=== PATIENT | male | born 1975 | race African-American/Black ===

== ENCOUNTER 2017-08-09 21:12 | Observation (INO) | payer MEDICAID, OTHER ==
[~2017-08-09] VITALS: Ht 193 cm; Wt 147.4 kg
[~2017-08-09 21:12] MED LIST: ARIP5TAB8 PO; BENZ2TAB27 PO
[2017-08-09 21:15] VITALS: BP 131/107
--- NOTE | 2017-08-09 21:15 | NUR ---
BIBA to bed 2.
--- NOTE | 2017-08-09 22:01 | NUR ---
Pt arrived from home via EMS after having stabbing chest pain and calling 911. Pt stated n/v, sob, and chest pain 03/16. upon arrival pt denies chest pain and states feeling better but sob remains. VSS. lungs clear to ausctltaion with 98% O2sat at room air. Pt A&Ox4. positioned in bed for comfort. ER MD aware. continue to monitor.
[2017-08-09 22:18] LABS: HEMATOCRIT 42.9 % (36-52); HEMOGLOBIN 14.1 g/dL (12.0-18.0); MEAN CORPUSCULAR HEMOGLOBIN 28 pg (27-31); MEAN CORPUSCULAR HGB CONC 33 g/dL (33-37); MEAN CORPUSCULAR VOLUME 86 fL (80-94); PLATELET COUNT (AUTO) 164 K/uL (140-450); RED BLOOD CELL COUNT(AUTO) 4.99 MIL/uL (4.20-6.10); WHITE BLOOD COUNT (AUTO) 4.6 K/uL (4.8-10.8)
[2017-08-09] MEDS ORDERED: ALBUTEROL SULFATE/IPRATROPIU 3 ML SOL IH ONE (23:00)
[2017-08-09 23:10] LABS: ALBUMIN 3.6 g/dL (3.4-5.0); CARBON DIOXIDE 29.1 mmol/L (21-32); CREATININE 1.2 mg/dL (0.7-1.3); POTASSIUM 4.1 mmol/L (3.5-5.1); TOTAL BILIRUBIN 0.2 mg/dL (0.0-1.0)
[2017-08-10] MEDS ORDERED: ACETAMINOPHEN 325 MG TAB PO PRN (02:50)
[2017-08-10] MEDS ORDERED: HYDROcodone/APAP 5/325 MG 1 TAB TAB PO PRN (02:50)
[2017-08-10] MEDS ORDERED: ONDANSETRON 4 MG/2 ML VIAL IVP PRN (02:50)
--- NOTE | 2017-08-10 03:52 | NUR ---
Pt escorted to [facility] via sofie by Surinder PONCE
[2017-08-10 04:00] VITALS: BP 134/80
--- NOTE | 2017-08-10 04:00 | NUR ---
PT ARRIVED AT UNIT VIA GURNEY, PT AMBULATED TO BED, TOLERATED WELL, RECEIVED REPORT FROM ER NURSE MAINOR RN, PT STABLE, NO DISTRESS NOTED, IV TO L AC 20G SL, INTACT AND PATENT, ORIENTED PT TO ROOM, CALL LIGHT, TV AND LIGHTS, INITIAL ASSESSMENT DONE, ALL SAFETY PRECAUTION MET, WILL CONTINUE TO MONITOR.
--- NOTE | 2017-08-10 04:05 | NUR ---
Report given and care taken over by Priya PONCE in room 119A
[2017-08-10 04:09] LABS: EOSINOPHILS % (MANUAL) 2 % (0-4); LYMPHOCYTES % (MANUAL) 30 % (20-46); MONOCYTES % (MANUAL) 6 % (5-12)
[2017-08-10] MEDS ORDERED: INFLUENZA VIRUS VACCINE QUAD 0.5 ML SYR IMVAC PRN (05:20)
--- NOTE | 2017-08-10 05:50 | NUR ---
CHECKED ON PT, PT SLEEPING, NO DISTRESS NOTED, CALL LIGHT WITHIN REACH, WILL CONTINUE TO MONITOR.
[2017-08-10] MEDS: ALBUTEROL 0.083% 2.5 MG/3 ML NEBU INH PRN (07:14)
--- NOTE | 2017-08-10 07:22 | NUR ---
RECEIVED PATIENT REPORT FROM NIGHTSHIFT NURSE. PATIENT IS AWAKE AT THIS TIME AND A&OX4. PATIENT BREATHING WITHIN NORMAL LIMITS. PATIENT DOES NOT COMPLAIN OF ANY PAIN AT THIS TIME. UPDATED BOARD OF PATIENT. PATIENT DOES NOT NEED ANYTHING AT THIS TIME. WILL CONTINUE TO MONITOR PATIENT.
--- NOTE | 2017-08-10 07:24 | NUR ---
ENDORSED PLAN OF CARE TO DAY SHIFT NURSE TERRANCE RN, PT STABLE, NO DISTRESS NOTED, CALL LIGHT WITHIN REACH.
[2017-08-10 08:00] VITALS: BP 129/88
[2017-08-10 08:34] LABS: CREATINE KINASE MB 2.8 ng/mL (0-3.6)
[2017-08-10] MEDS ORDERED: ENOXAPARIN 40 MG/0.4 ML SYR SUBQ SCH (09:00)
[2017-08-10] MEDS: BENZTROPINE 1 MG TAB PO SCH (09:58)
[2017-08-10] MEDS: ARIPiprazole 10 MG TAB PO SCH (09:58)
--- NOTE | 2017-08-10 09:58 | NUR ---
GAVE PATIENT'S ORAL MEDICATIONS. PATIENT REFUSED LOVENOX SHOT. WILL CONTINUE TO MONITOR PATIENT.
--- NOTE | 2017-08-10 11:45 | NUR ---
TALKED TO TATYANA REGARDING PATIENT'S MRSA SCREEN OF THE NARES. LAB DISCARDED PATIENT'S SCREEN SPECIMEN BECAUSE IT IS TOO OLD. WILL GET ANOTHER SAMPLE FROM PATIENT.
--- NOTE | 2017-08-10 11:50 | NUR ---
SWABBED PATIENT'S NOSE AGAIN AND SENT TO THE LAB FOR MRSA SCREENING OF NARES. PATIENT BREATHING WITHIN NORMAL LIMITS. NO COMPLAINTS OF PAIN. WILL CONTINUE TO MONITOR PATIENT.
[2017-08-10 12:00] VITALS: BP 120/73
--- NOTE | 2017-08-10 12:20 | NUR ---
PATIENT LAYING IN BED WATCHING TELEVISION. NO COMPLAINTS OF PAIN. PATIENT BREATHING WITHIN NORMAL LIMITS. PATIENT MUTTERING TO HIMSELF AT THIS TIME. NO SIGNS OF SUICIDE IDEATION OR COMMAND HALLUCINATIONS.
--- NOTE | 2017-08-10 13:27 | NUR ---
PATIENT RESTING IN BED. BREATHING IS UNLABORED AND SYMMETRICAL. NO COMPLAINTS OF PAIN. WILL CONTINUE TO MONITOR PATIENT.
--- NOTE | 2017-08-10 14:30 | NUR ---
PATIENT BREATHING IS WITHIN NORMAL LIMITS AT THIS TIME. NO COMMAND AUDITORY HALLUCINATIONS PRESENT FOR PATIENT AT THIS TIME. PATIENT COMPLAINS OF CONSTIPATION AND SAYS HIS LAST BOWEL MOVEMENT WAS IN THE MORNING YESTERDAY. WILL PAGE DR. FOSTER FOR ANY ORDERS REGARDING PATIENT'S CONDITION.
[2017-08-10] MEDS ORDERED: MAGNESIUM HYDROXIDE 2400 MG/30 ML UDC PO PRN (15:00)
--- NOTE | 2017-08-10 15:23 | NUR ---
PATIENT COMPLAINS OF DISCOMFORT IN ABDOMEN. PATIENT CLAIMS HIS LAST BOWEL MOVEMENT WAS YESTERDAY MORNING. GAVE PATIENT MILK OF MAGNESIA 30 ML FOR CONSTIPATION. WILL CONTINUE TO MONITOR PATIENT.
[2017-08-10 16:00] VITALS: BP 124/91
--- NOTE | 2017-08-10 16:15 | NUR ---
PATIENT HAS BEEN SCREENED AND CATEGORIZED LOW NUTRITION RISK. PATIENT WILL BE SEEN WITHIN 7 DAYS OF ADMISSION. 08/16/[address]
--- NOTE | 2017-08-10 16:31 | NUR ---
PATIENT RESTING IN BED AT THIS TIME. PATIENT HAS NO COMPLAINTS OF CHEST PAIN. PATIENT BREATHING WITHIN NORMAL LIMITS. WILL CONTINUE TO MONITOR PATIENT.
[2017-08-10 16:49] LABS: CREATINE KINASE MB 3.3 ng/mL (0-3.6)
--- NOTE | 2017-08-10 17:35 | NUR ---
PATIENT AWAITING CONSULTATION WITH PSYCHIATRIC DOCTOR. PATIENT WANTS TO GO HOME AT THIS TIME. EXPLAINED TO PATIENT THAT HE HAS TO WAIT UNTIL THE DOCTOR CLEARS HIM TO LEAVE THE HOSPITAL. WILL CONTINUE TO MONITOR PATIENT.
--- NOTE | 2017-08-10 19:03 | NUR ---
GAVE PATIENT REPORT TO NIGHTSHIFT NURSE. PATIENT IS IN STABLE CONDITION.
--- NOTE | 2017-08-10 19:04 | NUR ---
RECEIVED BEDSIDE REPORT FROM DAY SHIFT NURSE TERRANCE PONCE, PT STABLE, NO DISTRESS NOTED, CALL LIGHT WITHIN REACH, WILL CONTINUE TO MONITOR. Addendum: 08/10/17 at 2023 by Priya Guerra RN IV TO L AC 20 G SL, PATENT, INITIAL ASSESSMENT DONE, ALL SAFETY PRECAUTION MET, WILL CONTINUE TO MONITOR.
--- NOTE | 2017-08-10 19:43 | NUR ---
PT C/O OF HEADACHE 6/10 INTERMITTENT PAIN, TYLENOL GIVEN, IM FLU VACCINE ALSO GIVEN TO THE L ARM BY STUDENT TRICIA, SUPERVISED BY INSTRUCTOR AND NURSE. PT TOLERATED WELL, NO DISTRESS NOTED, CALL LIGHT WITHIN REACH, WILL CONTINUE TO MONITOR.
[2017-08-10 20:00] VITALS: BP 131/76
--- NOTE | 2017-08-10 22:28 | NUR ---
CHECKED ON PT, PT SLEEPING, NO DISTRESS NOTED, CALL LIGHT WITHIN REACH, WILL CONTINUE TO MONITOR.
[2017-08-11] VITALS: BP 116/64
--- NOTE | 2017-08-11 00:22 | NUR ---
CHECKED ON PT, PT SLEEPING, NO DISTRESS NOTED, EASY TO AROUSE, CALL LIGHT WITHIN REACH, WILL CONTINUE TO MONITOR.
--- NOTE | 2017-08-11 02:40 | NUR ---
CHECKED ON PT, PT SLEEPING, NO DISTRESS NOTED, CALL LIGHT WITHIN REACH, WILL CONTINUE TO MONITOR.
[2017-08-11 04:00] VITALS: BP 129/77
--- NOTE | 2017-08-11 05:00 | NUR ---
CHECKED ON PT, PT SLEEPING, NO DISTRESS NOTED, CALL LIGHT WITHIN REACH.
[2017-08-11 07:18] LABS: HEMATOCRIT 42.5 % (36-52); HEMOGLOBIN 14.1 g/dL (12.0-18.0); MEAN CORPUSCULAR HEMOGLOBIN 28 pg (27-31); MEAN CORPUSCULAR HGB CONC 33 g/dL (33-37); MEAN CORPUSCULAR VOLUME 86 fL (80-94); PLATELET COUNT (AUTO) 140 K/uL (140-450); RED BLOOD CELL COUNT(AUTO) 4.96 MIL/uL (4.20-6.10); RED CELL DISTRIBUTION WIDTH 12.8 % (11.6-13.7); WHITE BLOOD COUNT (AUTO) 3.6 K/uL (4.8-10.8)
--- NOTE | 2017-08-11 07:24 | NUR ---
RECEIVED PATIENT REPORT FROM NIGHTSHIFT NURSE AT BEDSIDE. PATIENT IS ASLEEP BUT AROUSABLE TO NAME. PATIENT SHOWS NO SIGNS OF RESPIRATORY DISTRESS OR RESPIRATORY DEPRESSION. PATIENT DOES NOT COMPLAIN OF PAIN. UPDATED BOARD AND PUT CALL LIGHT WITHIN REACH OF PATIENT. WILL CONTINUE TO MONITOR PATIENT.
[2017-08-11 07:26] LABS: ALBUMIN 3.4 g/dL (3.4-5.0); CARBON DIOXIDE 25.2 mmol/L (21-32); CREATININE 1.1 mg/dL (0.7-1.3); POTASSIUM 4.2 mmol/L (3.5-5.1); TOTAL BILIRUBIN 0.2 mg/dL (0.0-1.0)
--- NOTE | 2017-08-11 07:30 | NUR ---
ENDORSED PLAN OF CARE TO DAY SHIFT NURSE FANY PONCE, PT STABLE, NO DISTRESS NOTED, CALL LIGHT WITHIN REACH, WILL CONTINUE TO MONITOR. Addendum: 08/11/17 at 0735 by Priya Guerra RN ROSARIO CARLOS
[2017-08-11 07:49] LABS: EOSINOPHILS % (MANUAL) 1 % (0-4); LYMPHOCYTES % (MANUAL) 30 % (20-46); MONOCYTES % (MANUAL) 12 % (5-12)
[2017-08-11 08:00] VITALS: BP 128/75
[2017-08-11] MEDS ORDERED: ASPIRIN 325 MG TAB PO SCH (09:00)
[2017-08-11] MEDS ORDERED: ALBU-118 IH (09:16)
--- NOTE | 2017-08-11 09:22 | NUR ---
PATIENT AWAKE AT THIS TIME. NO COMPLAINTS OF PAIN. WILL CONTINUE TO MONITOR PATIENT.
[2017-08-11] MEDS: ARIPiprazole 10 MG TAB PO SCH (09:25)
[2017-08-11] MEDS: BENZTROPINE 1 MG TAB PO SCH (09:25)
--- NOTE | 2017-08-11 09:25 | NUR ---
PATIENT TOOK ALL 0900 MEDICATIONS BY MOUTH. PATIENT TOLERATED WELL. WILL CONTINUE TO MONITOR PATIENT.
[2017-08-11] MEDS ORDERED: ALBUTEROL 0.083% 2.5 MG/3 ML NEBU INH ONE (09:43)
[2017-08-11] MEDS: ALBUTEROL 0.083% 2.5 MG/3 ML NEBU INH PRN (09:45)
--- NOTE | 2017-08-11 09:45 | NUR ---
COMBAT SYSTEMS OFFICER CALLED TO BEDSIDE BY TERRANCE/ROSARIO PATIENT C/O OF SOB ALSO PRN ENTERED BY DR. NELSON FOSTER
--- NOTE | 2017-08-11 10:30 | NUR ---
PATIENT IS AWAKE AT THIS TIME. PATIENT HAS NO SHORTNESS OF BREATH OR RESPIRATORY DEPRESSION. NO COMPLAINTS OF PAIN NOTED AT THIS TIME. WILL CONTINUE TO MONITOR PATIENT.
--- NOTE | 2017-08-11 11:11 | NUR ---
PATIENT SIGNED ALL PAPERS AND UNDERSTOOD DISCHARGE INSTRUCTIONS. PATIENT HAS DISCHARGE PRESCRIPTION AND BUS PASS. PATIENT IS AWARE OF FOLLOW UP APPOINTMENTS. DISCONTINUED PATIENT IV CATHETER WITH IV STILL INTACT. CUT OFF IDENTIFICATION BANDS FOR PATIENT. REMOVED TELE MONITOR BOX FROM PATIENT. PATIENT IS IN STABLE CONDITION. PATIENT AMBULATED OFF THE UNIT WITH BELONGINGS IN HANDS.
[2017-08-11] MEDS ORDERED: ALBUTEROL 0.083% 2.5 MG/3 ML NEBU INH SCH (13:00)
== END 2017-08-11 11:11 | disposition home or self-care (01) ==
LOC: MED 21:12 → MTU 08-10 02:55 → UNDOADMIN 08-10 02:55
PROVIDERS: ADMIT Hospitalist; ATTEND Hospitalist
DX: R10.9 Unspecified abdominal pain (principal); F20.9 Schizophrenia, unspecified; R07.89 Other chest pain; J45.909 Unspecified asthma, uncomplicated; F17.200 Nicotine dependence, unspecified, uncomplicated
CPT/HCPCS: 36415; 71045; 80053; 82550; 82553; 83880; 84484; 85025; 85610; 85730; 87081; 90658; 93005; 94640; 96372; 99285; G0378; J1650; J7613; J7620

== ENCOUNTER 2017-11-10 08:42 | Emergency (ER) | payer OTHER ==
[~2017-11-10] VITALS: Ht 182.9 cm; Wt 154.2 kg
[~2017-11-10 08:42] MED LIST changes: +ALBU-118 IH
[2017-11-10 08:44] VITALS: BP 127/83
--- NOTE | 2017-11-10 08:53 | NUR ---
PATIENT BIBA FOR AUDITORY HALLUCINATIONS. PER [facility], PATIENT WAS FOUND AT A PAYPHONE. PATIENT STATES HE WAS HEARING VOICES AND WANTS SOME HELP. DENIES N/V/D; SKIN IS PINK/WARM/DRY; AAOX4 WITH EVEN AND STEADY GAIT; LUNGS CLEAR BL; HR EVEN AND REGULAR; PT DENIES ANY FEVER, CP, SOB, OR COUGH AT THIS TIME; PATIENT STATES PAIN OF 0/10 AT THIS TIME; VSS; PATIENT POSITIONED FOR COMFORT; HOB ELEVATED; BEDRAILS UP X1; BED DOWN. ER MD MADE AWARE OF PT STATUS.
--- NOTE | 2017-11-10 09:11 | NUR ---
PATIENT SITTING UP EATING.
--- NOTE | 2017-11-10 09:55 | NUR ---
BLOOD DRAWN AT BEDSIDE. SENT TO LAB. PATIENT TOLERATED PROCEDURE WELL. RESTING COMFORTABLY, X2 BED RAILS UP.
[2017-11-10 10:19] LABS: HEMATOCRIT 39.3 % (36-52); HEMOGLOBIN 12.7 g/dL (12.0-18.0); RED CELL DISTRIBUTION WIDTH 15.2 % (11.6-13.7)
[2017-11-10 10:27] LABS: MEAN CORPUSCULAR HEMOGLOBIN 27 pg (27-31); MEAN CORPUSCULAR HGB CONC 32 g/dL (33-37); MEAN CORPUSCULAR VOLUME 85.1 fL (80-94); PLATELET COUNT (AUTO) 165 K/uL (140-450); RED BLOOD CELL COUNT(AUTO) 4.61 MIL/uL (4.20-6.10); WHITE BLOOD COUNT (AUTO) 4.7 K/uL (4.8-10.8)
[2017-11-10 10:47] LABS: EOSINOPHILS % (MANUAL) 2 % (0-4); MONOCYTES % (MANUAL) 3 % (5-12)
[2017-11-10 10:48] LABS: LYMPHOCYTES % (MANUAL) 36 % (20-46)
--- NOTE | 2017-11-10 11:10 | NUR ---
Patient appears to be resting comfortably in bed. Vital Signs within normal limits. Respirations even and unlabored.
[2017-11-10 11:11] LABS: APPEARANCE,URINE CLEAR (CLEAR); BILIRUBIN,URINE NEGATIVE (NEGATIVE); BLOOD, URINE NEGATIVE (NEGATIVE); COLOR,URINE YELLOW (YELLOW); LEUKOCYTE ESTERASE ,URINE NEGATIVE (NEGATIVE); NITRITE, URINE NEGATIVE (NEGATIVE); UGLUCOSE NEGATIVE (NEGATIVE)
[2017-11-10 11:17] LABS: RBC,URINE 0-5 (RARE) /HPF (0-5); WBC,URINE 0-5 (RARE) /HPF (0-5)
[2017-11-10 11:17] LABS: ALBUMIN 3.6 g/dL (3.4-5.0); ANION GAP 13.8 (8-16); ASPARTATE AMINOTRANSFERASE 22 U/L (15-37); CARBON DIOXIDE 26.7 mmol/L (21-32); CHLORIDE 103 mmol/L (98-107); GFR ARICAN-AMERICAN 105 mL/min (>90); GLUCOSE 123 mg/dL (74-106); POTASSIUM 3.5 mmol/L (3.5-5.1); SODIUM SERUM 140 mmol/L (136-145); TOTAL BILIRUBIN 0.3 mg/dL (0.0-1.0); UREA NITROGEN, BLOOD 13 mg/dL (7-18)
[2017-11-10 11:21] LABS: SALICYLATE < 2.8 mg/dL (2.8-20.0)
[2017-11-10 11:22] LABS: ACETAMINOPHEN < 0.5 ug/ml (10-30)
--- NOTE | 2017-11-10 12:30 | NUR ---
Patient appears to be resting comfortably in bed. Vital Signs within normal limits. Respirations even and unlabored.
[2017-11-10] MEDS ORDERED: MAGNESIUM HYDROXIDE 2400 MG/30 ML UDC PO ONE (13:25)
--- NOTE | 2017-11-10 13:26 | NUR ---
Was called to evaluate patient for 5150 hold. Denies wanting to harm himself. States he has no intention of harming himself. He is looking for some help to regulate his medications and to get him on the right path in life and find a job. He would like to have a voluntary evaluation to be placed on leticia correct medications. He says he has smoked "dope" and would like to quit. Dr [place], public relations consultant, and staffing coordinator aware of my evaluation. We will be checking with local resources and attempt to get outpaitnet or voluntary resources prior to discharge.
--- NOTE | 2017-11-10 14:30 | NUR ---
Patient appears to be resting comfortably in bed. Vital Signs within normal limits. Respirations even and unlabored.
--- NOTE | 2017-11-10 15:54 | NUR ---
Patient discharged with v/s stable. Written and verbal after care instructions given and explained. Patient alert, oriented and verbalized understanding of instructions. Ambulatory with steady gait. All questions addressed prior to discharge. ID band removed. Patient advised to follow up with PMD. Rx of PEPCID AND MAALOX given. Patient educated on indication of medication including possible reaction and side effects. Opportunity to ask questions provided and answered.
[2017-11-10 15:59] VITALS: BP 121/83
[2017-11-10 15:59] LABS: BARBITURATE, URINE NEG. ng/ml (NEG <=200); BENZODIAZEPINE, URINE NEG. ng/mL (NEG <=200); CANNABINOID, URINE POS. ng/mL (NEG <=50); COCAINE, URINE NEG. ng/mL (NEG <=300); OPIATE, URINE NEG. ng/mL (NEG <=2000); PHENCYCLIDINE SCREEN,URINE NEG. ng/mL (NEG <=25)
== END 2017-11-10 15:54 | disposition home or self-care (01) ==
LOC: MED 08:42
DX: F99 Mental disorder, not otherwise specified (principal); E11.9 Type 2 diabetes mellitus without complications; I10 Essential (primary) hypertension; F20.9 Schizophrenia, unspecified; Z88.8 Allergy status to other drugs, medicaments and biological substances; Z79.899 Other long term (current) drug therapy
CPT/HCPCS: 36415; 80053; 80305; 81001; 85025; 93005; 99285; G0480; G0482

== ENCOUNTER 2017-11-18 06:55 | Emergency (ER) | payer OTHER ==
[~2017-11-18] VITALS: Ht 182.9 cm; Wt 167.8 kg
[2017-11-18 06:55] VITALS: BP 139/89
--- NOTE | 2017-11-18 06:55 | NUR ---
TO BED # 2 BIBA WITH C/O ABD PAIN,03/16, NV.
--- NOTE | 2017-11-18 07:32 | NUR ---
42 YO M BIBA FOUND IN THE STREET WITH C/O ABD PAIN, N/V. PSYCH PATIENT , NO SUICIDAL IDEATION AT THIS TIME, NO MEDS FOR 2 MONTHS,EKG DONE WITH NSR RESULT. A&O X 4. GCS 15. CMS INTACT. RR EVEN AND UNLABORED. LUNGS BILATERALLY CLEAR. ER MD DE LA CRUZ NOTIFIED. PT NEEDS MET. SAFETY PRECAUTIONS IN PLACE. WILL CONTINUE TO MONITOR.
--- NOTE | 2017-11-18 08:15 | NUR ---
PT TO XRAY AT THIS TIME.
[2017-11-18 08:23] LABS: BASOPHILS % (AUTO) 0.6 % (0.0-2.0); EOSINOPHILS # (AUTO) 0.1 K/uL (0-0.4); HEMOGLOBIN 12.3 g/dL (12.0-18.0); LYMPHOCYTES # (AUTO) 2.4 K/uL (2.0-11.5); LYMPHOCYTES % (AUTO) 47.6 % (20.5-51.1); MEAN CORPUSCULAR HEMOGLOBIN 28 pg (27-31); MEAN CORPUSCULAR HGB CONC 33 g/dL (33-37); MEAN CORPUSCULAR VOLUME 83.6 fL (80-94); MONOCYTES # (AUTO) 0.4 K/uL (0.8-1.0); MONOCYTES % (AUTO) 7.3 % (1.7-9.3); NEUTROPHILS % (AUTO) 41.5 % (42.2-75.2); PLATELET COUNT (AUTO) 185 K/uL (140-450); RED BLOOD CELL COUNT(AUTO) 4.43 MIL/uL (4.20-6.10); RED CELL DISTRIBUTION WIDTH 15.6 % (11.6-13.7); WHITE BLOOD COUNT (AUTO) 4.9 K/uL (4.8-10.8)
[2017-11-18 08:46] LABS: ALBUMIN 3.5 g/dL (3.4-5.0); ANION GAP 12.7 (8-16); ASPARTATE AMINOTRANSFERASE 31 U/L (15-37); CARBON DIOXIDE 25.1 mmol/L (21-32); CHLORIDE 105 mmol/L (98-107); CREATININE 1.1 mg/dL (0.7-1.3); GFR ARICAN-AMERICAN 94 mL/min (>90); GLUCOSE 107 mg/dL (74-106); POTASSIUM 3.8 mmol/L (3.5-5.1); SODIUM SERUM 139 mmol/L (136-145); TOTAL BILIRUBIN 0.2 mg/dL (0.0-1.0); UREA NITROGEN, BLOOD 16 mg/dL (7-18)
[2017-11-18 08:50] LABS: ACETAMINOPHEN < 0.5 ug/ml (10-30); SALICYLATE < 2.8 mg/dL (2.8-20.0)
--- NOTE | 2017-11-18 08:52 | NUR ---
ATTEMPTED TO COLLECT URINE FROM THE PATIENT AGAIN AT THIS TIME, PT REFUSED. WILL CONTINUE TO TRY TO COLLECT SPECIMEN. WILL CONTINUE TO MONITOR.
[2017-11-18 09:30] LABS: CKMB RELATIVE INDEX 1.5 (0.0-2.5); CREATINE KINASE MB 14.5 ng/mL (0-3.6)
--- NOTE | 2017-11-18 09:53 | NUR ---
Again tried to collect urine specimen from patient. Pt refused at this time. Will continue to monitor.
[2017-11-18 11:17] LABS: APPEARANCE,URINE CLEAR (CLEAR); BILIRUBIN,URINE NEGATIVE (NEGATIVE); BLOOD, URINE NEGATIVE (NEGATIVE); COLOR,URINE YELLOW (YELLOW); LEUKOCYTE ESTERASE ,URINE NEGATIVE (NEGATIVE); NITRITE, URINE NEGATIVE (NEGATIVE); PH,URINE 5.5 (5.0-9.0); UGLUCOSE NEGATIVE (NEGATIVE)
[2017-11-18 11:23] VITALS: BP 137/76
[2017-11-18 11:25] LABS: BARBITURATE, URINE NEG. ng/ml (NEG <=200); BENZODIAZEPINE, URINE NEG. ng/mL (NEG <=200); CANNABINOID, URINE POS. ng/mL (NEG <=50); COCAINE, URINE NEG. ng/mL (NEG <=300); OPIATE, URINE NEG. ng/mL (NEG <=2000); PHENCYCLIDINE SCREEN,URINE NEG. ng/mL (NEG <=25)
--- NOTE | 2017-11-18 11:25 | NUR ---
Patient discharged with v/s stable. Written and verbal after care instructions given and explained. Patient verbalized understanding. Ambulatory with steady gait. All questions addressed prior to discharge. Advised to follow up with PMD.
== END 2017-11-18 11:25 | disposition home or self-care (01) ==
LOC: MED 06:55
DX: F25.8 Other schizoaffective disorders (principal); J44.9 Chronic obstructive pulmonary disease, unspecified; K21.9 Gastro-esophageal reflux disease without esophagitis; I10 Essential (primary) hypertension; E11.9 Type 2 diabetes mellitus without complications; Z88.8 Allergy status to other drugs, medicaments and biological substances; Z59.0 Homelessness
CPT/HCPCS: 36415; 70450; 71045; 80053; 80305; 81003; 82550; 82553; 84484; 85025; 93005; 99285; G0480; G0482; Q0092; C1758

== ENCOUNTER 2019-09-20 07:40 | Emergency (ER) | payer MEDICAID, OTHER ==
[~2019-09-20] VITALS: Ht 182.9 cm; Wt 142.9 kg
--- NOTE | 2019-09-20 07:40 | NUR ---
Patient BIBA BLS accompanied by [employer], transferred to bed 5. RN evaluating patient at bedside.
[2019-09-20 07:42] VITALS: BP 145/89
--- NOTE | 2019-09-20 07:50 | NUR ---
claudy for hold for suicidal ideation. Pt states he plans to walk in front of a car or overdose on "something". Pt admits to meth use yesterday, denies etoh or drugs today. pt states he has a hx of schizophrenia and is hearing voices telling him to hurt himself. denies attempts to harm himself at this time. saftey precautions in place at this time. all belongings removed from patient and given to security. All cords, iv pole, & trashcan removed from room at this time. bed in low position, side rail up x1.
--- NOTE | 2019-09-20 07:50 | NUR ---
sitting at bedside monitoring pt.
--- NOTE | 2019-09-20 08:06 | NUR ---
pt states he is unable to urinate at this time.
--- NOTE | 2019-09-20 08:06 | NUR ---
lab at bedside
--- NOTE | 2019-09-20 08:12 | NUR ---
[facility] aware of pt, will assist with psych placement if indicated. [facility] will require packet to look for placement. [facility] fax: [phone]
[2019-09-20 08:14] LABS: BASOPHILS % (AUTO) 0.3 % (0.0-2.0); EOSINOPHILS # (AUTO) 0.1 K/uL (0-0.4); HEMATOCRIT 38.3 % (36-52); HEMOGLOBIN 12.5 g/dL (12.0-18.0); LYMPHOCYTES # (AUTO) 1.9 K/uL (2.0-11.5); LYMPHOCYTES % (AUTO) 43.5 % (20.5-51.1); MEAN CORPUSCULAR HEMOGLOBIN 28 pg (27-31); MEAN CORPUSCULAR HGB CONC 33 g/dL (33-37); MEAN CORPUSCULAR VOLUME 84.8 fL (80-94); MONOCYTES # (AUTO) 0.5 K/uL (0.8-1.0); MONOCYTES % (AUTO) 12.3 % (1.7-9.3); NEUTROPHILS # (AUTO) 1.8 K/uL (1.8-7.7); NEUTROPHILS % (AUTO) 41.9 % (42.2-75.2); PLATELET COUNT (AUTO) 182 K/uL (140-450); RED BLOOD CELL COUNT(AUTO) 4.52 MIL/uL (4.20-6.10); RED CELL DISTRIBUTION WIDTH 15.4 % (11.6-13.7); WHITE BLOOD COUNT (AUTO) 4.4 K/uL (4.8-10.8)
--- NOTE | 2019-09-20 08:30 | NUR ---
pt states he is still unable to urinate at this time.
[2019-09-20 08:32] LABS: ANION GAP 11.6 (8-16); CARBON DIOXIDE 28.7 mmol/L (21-32); CREATININE 1.1 mg/dL (0.6-1.3); POTASSIUM 4.3 mmol/L (3.5-5.1)
[2019-09-20 08:42] LABS: FREE T4 (FREE THYROXINE) 1.06 ng/dL (0.76-1.46); THYROID STIMULATING HORMONE 1.65 uIU/mL (0.34-3.74)
[2019-09-20 08:44] LABS: ACETAMINOPHEN < 0.5 ug/ml (10-30); SALICYLATE < 2.8 mg/dL (2.8-20.0)
--- NOTE | 2019-09-20 10:06 | NUR ---
pt asleep in bed, arousable to verbal stimuli
[2019-09-20 10:09] LABS: BARBITURATE, URINE NEGATIVE ng/ml (NEG <=200); BENZODIAZEPINE, URINE NEGATIVE ng/mL (NEG <=200); CANNABINOID, URINE POS ng/mL (NEG <=50); COCAINE, URINE NEG ng/mL (NEG <=300); OPIATE, URINE NEG ng/mL (NEG <=2000); PHENCYCLIDINE SCREEN,URINE NEG ng/mL (NEG <=25)
--- NOTE | 2019-09-20 11:17 | NUR ---
PT REMAINS ASLEEP IN BED, AROUSABLE TO VERBAL STIMULI. NO NEW NEEDS AT THIS TIME.
--- NOTE | 2019-09-20 11:21 | NUR ---
[facility] received pt packet via fax, will begin looking for placement. Yeimi from [facility] ER aware.
--- NOTE | 2019-09-20 11:30 | NUR ---
Contacted the following facilities regarding placement: [facility]: s/w Jerzy, states they may have openings, will review packet for appropriateness. Packet faxed [facility]: s/w Sonja, states that they are not reviewing packets unless the patient is ruled out for COVID-19. Will contact ER to clarify if pt has been tested. [facility]: s/w [facility], states doctors are doing their rounds, packet faxed for review. [facility]: No answer at intake, packet faxed for review. [facility]: Transferred to busy signal multiple attempts. Packet faxed.
--- NOTE | 2019-09-20 12:06 | NUR ---
Telepsychiatry consultation ordered as requested by Dr. Hernández.
--- NOTE | 2019-09-20 12:21 | NUR ---
Dr. Garrido is evaluating the patient via telepsychiatry.
--- NOTE | 2019-09-20 13:05 | NUR ---
Patient to be transferred to [facility]. Patient is being transferred due to needing psychiatric services. Receiving facility has accepting physician Dr. Ortiz and available space. Patient will be going to unit #1 room # 1002-C. ER physician has signed transfer form. Patient belongings inventoried and will be sent with patient. Copy of nursing notes and lab reports to be sent with patient. Report called to Noreen PONCE at receiving facility. [facility] ambulance service has been called for transfer.
[2019-09-20 14:42] VITALS: BP 121/74
--- NOTE | 2019-09-20 14:42 | NUR ---
[facility] IS TRANSFERING PT AT BEDSIDE.
== END 2019-09-20 14:42 ==
LOC: MED 07:40
DX: R45.851 Suicidal ideations (principal); F15.10 Other stimulant abuse, uncomplicated; F12.10 Cannabis abuse, uncomplicated; J45.909 Unspecified asthma, uncomplicated; E11.9 Type 2 diabetes mellitus without complications; I10 Essential (primary) hypertension; Z88.8 Allergy status to other drugs, medicaments and biological substances
CPT/HCPCS: 36415; 80048; 80305; 81002; 84439; 84443; 85025; 93005; 99285; G0480; G0482

== ENCOUNTER 2020-02-25 06:58 | Emergency (ER) | payer MEDICAID ==
[~2020-02-25] VITALS: Ht 182.9 cm; Wt 122.5 kg
[2020-02-25 07:06] VITALS: BP 146/98
--- NOTE | 2020-02-25 07:10 | NUR ---
PT TAKEN TO BED 05 WITH STEADY GAIT.
--- NOTE | 2020-02-25 07:16 | NUR ---
DR. OKEEFE EVALUATING PT AT BEDSIDE
--- NOTE | 2020-02-25 07:22 | NUR ---
44/M C/O AUDITORY HALLUCINATIONS X OVER 1 MONTH. PT UNABLE TO SPECIFY NOW WHAT VOICES ARE TELLING HIM TO DO. OUT OF HOME MEDS DEPAKOTE AND ABILITY FOR THE LAST 6 MONTHS. ABLE TO ANSWER QUESTIONS APPROPRIATELY AT THIS TIME. NOTED TO BE MUMBLING TO SELF, WHEN ASKED WHAT VOICES ARE TELLING HIM TO DO NOW, PT STATES HE IS JUST HAVING A CONVERSATION WITH HIMSELF. NAD. PMH: SCHIZOPHRENIA ALLERGIES: RISPERIDONE
--- NOTE | 2020-02-25 07:25 | NUR ---
PT STATES WOULD JUST LIKE TO GET HIS MEDICATIONS REFILLED HERE, AND HE WILL BE ABLE TO SEE A PSYCHIATRIST OUTPATIENT.
--- NOTE | 2020-02-25 07:45 | NUR ---
Patient discharged with v/s stable. Written and verbal after care instructions given and explained. Patient alert, oriented and verbalized understanding of instructions. Ambulatory with steady gait. All questions addressed prior to discharge. ID band removed. Patient advised to follow up with PMD. Rx of DEPAKOTE AND ABILIFY given. Patient educated on indication of medication including possible reaction and side effects. Opportunity to ask questions provided and answered.
--- NOTE | 2020-02-25 07:45 | NUR ---
[facility]/PSYCH/COUNSELING RESOURCE HANDED GIVEN TO PT
[2020-02-25 07:57] VITALS: BP 146/98
== END 2020-02-25 07:45 | disposition home or self-care (01) ==
LOC: MED 06:58
DX: F20.9 Schizophrenia, unspecified (principal); F15.10 Other stimulant abuse, uncomplicated; F12.10 Cannabis abuse, uncomplicated; F17.210 Nicotine dependence, cigarettes, uncomplicated; J45.909 Unspecified asthma, uncomplicated; E11.9 Type 2 diabetes mellitus without complications; I10 Essential (primary) hypertension; Z98.890 Other specified postprocedural states; Z88.8 Allergy status to other drugs, medicaments and biological substances
CPT/HCPCS: 99283

== ENCOUNTER 2020-02-27 16:31 | Emergency (ER) | payer MEDICAID, OTHER ==
[~2020-02-27] VITALS: Ht 182.9 cm; Wt 170.1 kg
[2020-02-27 16:38] VITALS: BP 145/100
--- NOTE | 2020-02-27 16:38 | NUR ---
Pt biba and taken to bed 05
--- NOTE | 2020-02-27 16:41 | NUR ---
45 y/o male biba for auditory hallucination x 90 days. Pt states possible thoughts of suicidal ideation. States voices telling him to kill self. Pt does not have specific plan but states "these voices are getting dangerous." States 6/10 lower back pain for 90 days. Denies trauma/injury. Awake and alert. Pt calm and cooperative. VSS medhx: schizophrenia, bipolar
--- NOTE | 2020-02-27 16:45 | NUR ---
Dr Stover at bedside examining pt
--- NOTE | 2020-02-27 16:51 | NUR ---
Pt ambulated to restroom for collection of urine
[2020-02-27 17:14] LABS: BASOPHILS % (AUTO) 0.5 % (0.0-2.0); EOSINOPHILS # (AUTO) 0.1 K/uL (0-0.4); EOSINOPHILS % (AUTO) 2.5 % (0.0-4.0); HEMATOCRIT 38.4 % (36-52); HEMOGLOBIN 12.7 g/dL (12.0-18.0); LYMPHOCYTES # (AUTO) 2.5 K/uL (2.0-11.5); LYMPHOCYTES % (AUTO) 46.1 % (20.5-51.1); MEAN CORPUSCULAR HEMOGLOBIN 28 pg (27-31); MEAN CORPUSCULAR HGB CONC 33 g/dL (33-37); MONOCYTES # (AUTO) 0.4 K/uL (0.8-1.0); MONOCYTES % (AUTO) 8.1 % (1.7-9.3); NEUTROPHILS # (AUTO) 2.4 K/uL (1.8-7.7); NEUTROPHILS % (AUTO) 42.8 % (42.2-75.2); PLATELET COUNT (AUTO) 195 K/uL (140-450); RED BLOOD CELL COUNT(AUTO) 4.63 MIL/uL (4.20-6.10); RED CELL DISTRIBUTION WIDTH 15.4 % (11.6-13.7); WHITE BLOOD COUNT (AUTO) 5.5 K/uL (4.8-10.8)
[2020-02-27 17:16] LABS: APPEARANCE,URINE CLEAR (CLEAR); BILIRUBIN,URINE 1+ (NEGATIVE); BLOOD, URINE NEGATIVE (NEGATIVE); COLOR,URINE YELLOW (YELLOW); LEUKOCYTE ESTERASE ,URINE NEGATIVE (NEGATIVE); NITRITE, URINE NEGATIVE (NEGATIVE); UGLUCOSE NEGATIVE (NEGATIVE)
--- NOTE | 2020-02-27 17:16 | NUR ---
Covid swabs collected from patient and taken to lab.
[2020-02-27 17:26] LABS: ALBUMIN 3.9 g/dL (3.4-5.0); ANION GAP 12.4 (8-16); ASPARTATE AMINOTRANSFERASE 25 U/L (15-37); CARBON DIOXIDE 28.4 mmol/L (21-32); CHLORIDE 105 mmol/L (98-107); CREATININE 1.2 mg/dL (0.6-1.3); GFR ARICAN-AMERICAN 84 mL/min (>90); GLUCOSE 104 mg/dL (74-106); POTASSIUM 3.8 mmol/L (3.5-5.1); SODIUM SERUM 142 mmol/L (136-145); TOTAL BILIRUBIN 0.2 mg/dL (0.0-1.0); UREA NITROGEN, BLOOD 15 mg/dL (7-18)
[2020-02-27 17:27] LABS: BARBITURATE, URINE NEGATIVE ng/ml (NEG <=200); BENZODIAZEPINE, URINE POSITIVE ng/mL (NEG <=200); CANNABINOID, URINE POSITIVE ng/mL (NEG <=50); COCAINE, URINE NEGATIVE ng/mL (NEG <=300); OPIATE, URINE POSITIVE ng/mL (NEG <=2000); PHENCYCLIDINE SCREEN,URINE NEGATIVE ng/mL (NEG <=25)
--- NOTE | 2020-02-27 18:09 | NUR ---
SUBMITTED TELEPSYCH ORDER PER DR. MASSEY
--- NOTE | 2020-02-27 18:11 | NUR ---
PT SPEAKING WITH TELEPSYCH PHYSICIAN AT THIS TIME
[2020-02-27] MEDS ORDERED: fentaNYL citrate 0.05 MG/ML VIAL IVP ONE (18:35)
--- NOTE | 2020-02-27 18:46 | NUR ---
Resting in bed with eyes closed, visible rise and fall of the chest. Positioned for comfort. VSS
[2020-02-27 19:11] VITALS: BP 136/99
--- NOTE | 2020-02-27 19:11 | NUR ---
Pt refused to wait for medication. Discharged with prescription for Abilify and Depakote. Refused to sign d/c paperwork
[2020-02-28] MEDS ORDERED: ARIPiprazole 10 MG TAB PO SCH (09:00)
== END 2020-02-27 19:12 | disposition home or self-care (01) ==
LOC: MED 16:31
DX: F20.9 Schizophrenia, unspecified (principal); R44.0 Auditory hallucinations; F19.10 Other psychoactive substance abuse, uncomplicated; F12.10 Cannabis abuse, uncomplicated; J45.909 Unspecified asthma, uncomplicated; E11.9 Type 2 diabetes mellitus without complications; I10 Essential (primary) hypertension; Z91.14 Patient's other noncompliance with medication regimen; Z59.0 Homelessness; Z88.8 Allergy status to other drugs, medicaments and biological substances; Z91.19 Patient's noncompliance with other medical treatment and regimen
CPT/HCPCS: 80053; 80305; 81003; 85025; 87426; 99283; G0482; U0003

== ENCOUNTER 2022-06-14 03:39 | Emergency (ER) | payer OTHER ==
[~2022-06-14] VITALS: Ht 182.9 cm; Wt 147.4 kg
--- NOTE | 2022-06-14 03:43 | NUR ---
Dr. Enriquez examining patient.
[2022-06-14 03:47] VITALS: BP 138/82
--- NOTE | 2022-06-14 03:47 | NUR ---
PT PLACED ON HOLD AT 0310 BY PAINTED POST .
--- NOTE | 2022-06-14 04:27 | NUR ---
PT TAKEN TO BED 7
--- NOTE | 2022-06-14 04:45 | NUR ---
swabs and urine sent to lab
[2022-06-14 04:52] LABS: APPEARANCE,URINE CLEAR (CLEAR); BILIRUBIN,URINE NEGATIVE (NEGATIVE); BLOOD, URINE NEGATIVE (NEGATIVE); COLOR,URINE YELLOW (YELLOW); LEUKOCYTE ESTERASE ,URINE NEGATIVE (NEGATIVE); NITRITE, URINE NEGATIVE (NEGATIVE); UGLUCOSE NEGATIVE (NEGATIVE)
[2022-06-14 05:10] LABS: BARBITURATE, URINE NEGATIVE ng/ml (NEG <=200); BENZODIAZEPINE, URINE NEGATIVE ng/mL (NEG <=200); CANNABINOID, URINE NEGATIVE ng/mL (NEG <=50); COCAINE, URINE NEGATIVE ng/mL (NEG <=300); OPIATE, URINE NEGATIVE ng/mL (NEG <=2000); PHENCYCLIDINE SCREEN,URINE NEGATIVE ng/mL (NEG <=25)
[2022-06-14 05:20] LABS: BASOPHILS # (AUTO) 0.1 K/uL (0.00-0.22); BASOPHILS % (AUTO) 1.1 % (0.0-2.0); EOSINOPHILS # (AUTO) 0.1 K/uL (0-0.4); EOSINOPHILS % (AUTO) 2.1 % (0.0-4.0); HEMATOCRIT 40.8 % (36-52); HEMOGLOBIN 13.2 g/dL (12.0-18.0); LYMPHOCYTES % (AUTO) 35.2 % (20.5-51.1); MEAN CORPUSCULAR HEMOGLOBIN 27 pg (27-31); MEAN CORPUSCULAR HGB CONC 32 g/dL (33-37); MEAN CORPUSCULAR VOLUME 83.4 fL (80-94); MONOCYTES # (AUTO) 0.5 K/uL (0.8-1.0); MONOCYTES % (AUTO) 9.1 % (1.7-9.3); NEUTROPHILS % (AUTO) 52.5 % (42.2-75.2); PLATELET COUNT (AUTO) 226 K/uL (140-450); RED BLOOD CELL COUNT(AUTO) 4.89 MIL/uL (4.20-6.10); RED CELL DISTRIBUTION WIDTH 15.9 % (11.6-13.7); WHITE BLOOD COUNT (AUTO) 5.7 K/uL (4.8-10.8)
[2022-06-14 05:49] LABS: ALBUMIN 3.4 g/dL (3.4-5.0); ANION GAP 12.7 (8-16); ASPARTATE AMINOTRANSFERASE 33 U/L (15-37); CARBON DIOXIDE 27.5 mmol/L (21-32); CHLORIDE 101 mmol/L (98-107); CREATININE 0.9 mg/dL (0.6-1.3); GFR ARICAN-AMERICAN 116 mL/min (>90); GLUCOSE 105 mg/dL (74-106); POTASSIUM 4.2 mmol/L (3.5-5.1); SODIUM SERUM 137 mmol/L (136-145); TOTAL BILIRUBIN 0.1 mg/dL (0.0-1.0); UREA NITROGEN, BLOOD 15 mg/dL (7-18)
[2022-06-14 05:51] LABS: ACETAMINOPHEN < 0.5 ug/ml (10-30); SALICYLATE < 2.8 mg/dL (2.8-20.0)
--- NOTE | 2022-06-14 06:27 | NUR ---
CALLED STATES HE IS READY FOR CONSULT.
--- NOTE | 2022-06-14 06:49 | NUR ---
DR. Merary VALADEZ CALLED BACK. ATTEMPTING TO CONNECT THROUGH IPAD. UNSUCESSFUL
--- NOTE | 2022-06-14 07:14 | NUR ---
TELEPSYCH DR. VALADEZ SPEAKING WITH PT
--- NOTE | 2022-06-14 07:15 | NUR ---
Report recieved from ROSARIO Hughes for transfer of care.
--- NOTE | 2022-06-14 08:20 | NUR ---
Patient was offered his breakfast tray. Tray left at bedside.
[2022-06-14] MEDS ORDERED: ARIPiprazole 10 MG TAB PO SCH (09:00)
[2022-06-14] MEDS ORDERED: CRUSHER, PILL MC ONE (09:52)
--- NOTE | 2022-06-14 10:05 | NUR ---
Patient is breathing even and unlabored. All needs met by staff. Frequent visual rounds being performed.
--- NOTE | 2022-06-14 12:02 | NUR ---
Patient was offered his lunch tray, tray left at bedside.
--- NOTE | 2022-06-14 12:04 | NUR ---
Spoke to Cristela @ [facility], patient is accepted under the care of Dr. Byrd, will go to Unit 2. Requesting set up after 2PM. If needed call back #: [phone]. No report needed.
--- NOTE | 2022-06-14 12:15 | NUR ---
Patient to be transferred to [facility]. Is being transferred due to [facility] Level of Care. Receiving facility has accepting physician and available space. ER physician has signed transfer form. Patient or responsible green party has agreed to transfer and signed form. Patient belongings inventoried and will be sent with patient. Copy of nursing notes, lab reports, EKG, Physicians Orders and X-rays to be sent with patient. Report called to Kusum at receiving facility. [facility] ambulance service has been called for transfer. ETA is 1400.
--- NOTE | 2022-06-14 13:19 | NUR ---
Patient is laying in bed. Frequent visual checks being made. All needs met by staff.
[2022-06-14 14:04] VITALS: BP 104/58
--- NOTE | 2022-06-14 14:04 | NUR ---
[facility] at bedside.
--- NOTE | 2022-06-14 14:44 | NUR ---
The patient's care was reviewed and supervised by [facility], RN.
== END 2022-06-14 14:04 ==
LOC: MED 03:39
DX: R45.851 Suicidal ideations (principal); Z20.822 Contact with and (suspected) exposure to COVID-19
CPT/HCPCS: 36415; 80053; 80305; 81003; 85025; 87426; 87635; 99285; C9803; G0480; G0482